=== PATIENT | male | born 1975 | race Caucasian/White ===

== ENCOUNTER 2018-02-15 16:32 | Emergency (ER) | payer OTHER ==
[~2018-02-15] VITALS: Ht 185.4 cm; Wt 146.0 kg
[2018-02-15] MEDS ORDERED: amLODIPine 5mg tablet PO ONE (16:55)
[2018-02-15] MEDS ORDERED: AMLO5TAB4 PO (16:56)
[2018-02-15 17:45] VITALS: BP 189/110
== END 2018-02-15 17:46 | disposition home or self-care (01) ==
LOC: ER 16:33
DX: I10 Essential (primary) hypertension (principal); E66.9 Obesity, unspecified; R00.0 Tachycardia, unspecified; Z87.891 Personal history of nicotine dependence; Z88.6 Allergy status to analgesic agent; Z79.899 Other long term (current) drug therapy
CPT/HCPCS: 93005; 99283

== ENCOUNTER 2020-12-21 10:42 | Emergency (ER) | payer OTHER ==
[~2020-12-21] VITALS: Ht 185.4 cm; Wt 131.8 kg
[~2020-12-21 10:42] MED LIST: AMLO5TAB4 PO
[2020-12-21 12:48] VITALS: BP 141/89
== END 2020-12-21 12:50 | disposition home or self-care (01) ==
LOC: ER 10:43
DX: T81.9XXA Unspecified complication of procedure, initial encounter (principal); R10.9 Unspecified abdominal pain
CPT/HCPCS: 71046; 99283